=== PATIENT | female | born 1960 | race Caucasian/White ===

== ENCOUNTER 2018-04-24 15:10 | Emergency (ER) | END 2018-04-24 18:05 | disposition home or self-care (01) ==

== ENCOUNTER 2018-05-09 17:40 | Emergency (ER) | END 2018-05-10 00:41 | disposition home or self-care (01) ==

== ENCOUNTER 2018-05-14 08:26 | Day surgery (SDC) | END 2018-05-14 11:18 | disposition home or self-care (01) ==